=== PATIENT | male | born 1970 | race Caucasian/White ===

== ENCOUNTER → 2022-07-19 | Outpatient (CLI) | payer BC ==
[~2022-07-19] MED LIST: ASPIRIN CHILDRE81 MG OGT; ENOXAPARIN80 MG/0.2 SC; FUROSEMIDE10 MG/1 M1 IV; Ipratropium Brom3 ML NEB; Protonix IV; SOLU-MEDRO40 MG/1 ML IV
[2022-07-19 16:29] LABS: HEMATOCRIT 45.3 % (42.0-52.0); MEAN CELL VOLUME 96.8 fl (80.0-94.0); MEAN CORPUSCULAR HGB 30.6 pg (27.0-31.0); MEAN CORPUSCULAR HGB CONC 31.6 g/dl (33.0-37.0); MEAN PLATELET VOLUME 10.9 fl (9.6-12.3); RED BLOOD COUNT 4.68 10*6/uL (4.50-5.90); RED CELL DISTRI WIDTH 15.9 % (0-14.5); WHITE BLOOD COUNT 7.7 10*3/uL (4.8-10.8)
[2022-07-19 16:48] LABS: ALKALINE PHOSPHATASE 189 U/L (46-116); BUN 8 mg/dl (9-23); CHLORIDE 100 mmol/L (98-107); POTASSIUM 3.7 mmol/L (3.4-5.1); SGPT/ALT 66 U/L (10-49); TOTAL PROTEIN 7.5 gm/dL (6.0-8.0)
== END | disposition home or self-care (01) ==
LOC: LAB 15:44
PROVIDERS: ATTEND Family Medicine
DX: G89.29 Other chronic pain (principal); D64.9 Anemia, unspecified

== ENCOUNTER → 2022-07-26 | Outpatient (CLI) | payer BC | LOC: WOUNDCARE 04:27 | PROVIDERS: ATTEND Nurse Practitioner Family | DX: L89.314 Pressure ulcer of right buttock, stage 4 (principal); I15.9 Secondary hypertension, unspecified; I25.2 Old myocardial infarction; E66.01 Morbid (severe) obesity due to excess calories; I82.402 Acute embolism and thrombosis of unspecified deep veins of left lower extremity; J44.9 Chronic obstructive pulmonary disease, unspecified; F43.12 Post-traumatic stress disorder, chronic; Z87.891 Personal history of nicotine dependence; Z68.39 Body mass index [BMI] 39.0-39.9, adult; Z79.82 Long term (current) use of aspirin ==

== ENCOUNTER → 2022-07-26 | Outpatient (CLI) | payer BC | END | disposition home or self-care (01) | LOC: WOUNDCARE 04:31 | PROVIDERS: ATTEND Nurse Practitioner Family | DX: L89.314 Pressure ulcer of right buttock, stage 4 (principal); E66.01 Morbid (severe) obesity due to excess calories; I82.402 Acute embolism and thrombosis of unspecified deep veins of left lower extremity; I15.9 Secondary hypertension, unspecified; I10 Essential (primary) hypertension; I25.2 Old myocardial infarction; J44.9 Chronic obstructive pulmonary disease, unspecified; F43.12 Post-traumatic stress disorder, chronic; Z87.891 Personal history of nicotine dependence; Z79.82 Long term (current) use of aspirin ==

== ENCOUNTER → 2022-08-02 | Outpatient (CLI) | payer BC | END | disposition home or self-care (01) | LOC: WOUNDCARE 01:25 | PROVIDERS: ATTEND Nurse Practitioner Family | DX: L89.314 Pressure ulcer of right buttock, stage 4 (principal); I15.9 Secondary hypertension, unspecified; E66.01 Morbid (severe) obesity due to excess calories; I25.2 Old myocardial infarction; I10 Essential (primary) hypertension; J44.9 Chronic obstructive pulmonary disease, unspecified; F43.12 Post-traumatic stress disorder, chronic; I82.402 Acute embolism and thrombosis of unspecified deep veins of left lower extremity; Z87.891 Personal history of nicotine dependence ==

== ENCOUNTER → 2022-08-09 | Outpatient (CLI) | payer BC | END | disposition home or self-care (01) | LOC: WOUNDCARE 01:24 | PROVIDERS: ATTEND Nurse Practitioner Family | DX: L89.314 Pressure ulcer of right buttock, stage 4 (principal); I82.402 Acute embolism and thrombosis of unspecified deep veins of left lower extremity; E66.01 Morbid (severe) obesity due to excess calories; I15.9 Secondary hypertension, unspecified; J44.9 Chronic obstructive pulmonary disease, unspecified; I25.2 Old myocardial infarction; F43.12 Post-traumatic stress disorder, chronic; Z87.891 Personal history of nicotine dependence ==

== ENCOUNTER → 2022-08-23 | Outpatient (CLI) | payer BC | END | disposition home or self-care (01) | LOC: WOUNDCARE 01:54 | PROVIDERS: ATTEND Nurse Practitioner Family | DX: L89.314 Pressure ulcer of right buttock, stage 4 (principal); I82.402 Acute embolism and thrombosis of unspecified deep veins of left lower extremity; E66.01 Morbid (severe) obesity due to excess calories; I15.9 Secondary hypertension, unspecified; J44.9 Chronic obstructive pulmonary disease, unspecified; I25.2 Old myocardial infarction; F43.12 Post-traumatic stress disorder, chronic; Z87.891 Personal history of nicotine dependence ==

== ENCOUNTER → 2022-09-07 | Outpatient (CLI) | payer BC | END | disposition home or self-care (01) | LOC: WOUNDCARE 01:20 | PROVIDERS: ATTEND Nurse Practitioner Family | DX: L89.314 Pressure ulcer of right buttock, stage 4 (principal); I15.9 Secondary hypertension, unspecified; J44.9 Chronic obstructive pulmonary disease, unspecified; E66.01 Morbid (severe) obesity due to excess calories; I25.2 Old myocardial infarction; I82.402 Acute embolism and thrombosis of unspecified deep veins of left lower extremity; F43.12 Post-traumatic stress disorder, chronic; Z87.891 Personal history of nicotine dependence ==

== ENCOUNTER → 2022-10-05 | Outpatient (CLI) | payer BC | END | disposition home or self-care (01) | LOC: WOUNDCARE 00:59 | PROVIDERS: ATTEND Nurse Practitioner Family | DX: L89.314 Pressure ulcer of right buttock, stage 4 (principal); I82.402 Acute embolism and thrombosis of unspecified deep veins of left lower extremity; I15.9 Secondary hypertension, unspecified; I25.2 Old myocardial infarction; J44.9 Chronic obstructive pulmonary disease, unspecified; E66.01 Morbid (severe) obesity due to excess calories; F43.12 Post-traumatic stress disorder, chronic; Z87.891 Personal history of nicotine dependence ==

== ENCOUNTER → 2022-10-20 | Outpatient (CLI) | payer BC | END | disposition home or self-care (01) | LOC: RAD 14:34 | PROVIDERS: ATTEND Family Medicine | DX: M47.817 Spondylosis without myelopathy or radiculopathy, lumbosacral region (principal); M54.31 Sciatica, right side; M54.50 Low back pain, unspecified ==

== ENCOUNTER → 2022-11-16 | Outpatient (CLI) | payer BC ==
[~2022-11-16] MED LIST changes: +ELIQUIS5 M1 PO; +LYRICA150 M1 PO; +NEURONTIN100 MG PO; +PROTONIX40 MG PO; +TOPROL XL25 MG PO; +VOLTAREN50 M1 PO
== END | disposition home or self-care (01) ==
LOC: CARD 01:35
PROVIDERS: ATTEND Internal Medicine Cardiovascular Disease
DX: I20.9 Angina pectoris, unspecified (principal); R30.0 Dysuria

== ENCOUNTER 2023-05-06 13:26 | Emergency (ER) | payer OTHER ==
[~2023-05-06] VITALS: Ht 177.8 cm; Wt 140.6 kg
[2023-05-06 15:19] LABS: BASO # 0.1 10*3/uL (0.0-0.1); BASO % 0.4 % (0.0-1.0); EOS # 0.4 10*3/uL (0.0-0.4); HEMATOCRIT 50.2 % (42.0-52.0); LYMPH # 1.3 10*3/uL (1.3-4.4); LYMPH % 10.2 % (27.0-41.0); MEAN CELL VOLUME 91.1 fl (80.0-94.0); MEAN CORPUSCULAR HGB 29.9 pg (27.0-31.0); MEAN CORPUSCULAR HGB CONC 32.9 g/dl (33.0-37.0); MONO # 1.2 10*3/uL (0.1-1.0); MONO % 9.1 % (3.0-9.0); NEUT % 76.5 % (47.0-73.0); PLATELET COUNT AUTOMATED 194 10*3/uL (130-400); RED BLOOD COUNT 5.51 10*6/uL (4.50-5.90); RED CELL DISTRI WIDTH 15.1 % (0-14.5); WHITE BLOOD COUNT 13.1 10*3/uL (4.8-10.8)
[2023-05-06 15:32] LABS: ALKALINE PHOSPHATASE 238 U/L (46-116); BUN 5 mg/dl (9-23); CHLORIDE 101 mmol/L (98-107); LIPASE 29 U/L (12-53); SGPT/ALT 312 U/L (5-49); TOTAL PROTEIN 7.9 gm/dL (6.0-8.0)
[2023-05-06 16:15] LABS: BILIRUBIN 3+ (Negative); BLOOD Negative (Negative); CLARITY Clear (Clear); COLOR Dark Yellow (Yellow); GLUCOSE Negative (Negative); KETONE 1+ (Negative); LEUKO ESTERASE Trace (Negative); NITRITE Negative (Negative); PH 6.5 (4.5-8.0); SPECIFIC GRAVITY 1.015 (1.001-1.030)
[2023-05-06 16:24] LABS: EPITHELIAL CELLS 0-2
== END 2023-05-07 04:11 | disposition short-term general hospital (02) ==
LOC: ED 13:26
PROVIDERS: Nurse Practitioner Family
DX: K83.1 Obstruction of bile duct (principal); K82.9 Disease of gallbladder, unspecified; R74.02 Elevation of levels of lactic acid dehydrogenase [LDH]; E87.6 Hypokalemia; Z98.890 Other specified postprocedural states; I25.10 Atherosclerotic heart disease of native coronary artery without angina pectoris; I25.2 Old myocardial infarction; J45.909 Unspecified asthma, uncomplicated; I10 Essential (primary) hypertension; G62.9 Polyneuropathy, unspecified